=== PATIENT | female | born 1935 | race Caucasian/White ===

== ENCOUNTER 2017-11-18 17:30 | Inpatient (IN) ==
[2017-11-18] MEDS ORDERED: SODIUM CHLORIDE 0.9% 500 ML IV STA (19:19)
[2017-11-18] MEDS ORDERED: KETOROLAC 30 MG/1 ML VIAL IV STA (19:19)
[2017-11-18 20:08] LABS: Basophils % 0.1 % (0.0-0.8); Hematocrit 32.7 VOL% (35.7-47.0); Hemoglobin 10.3 GM/DL (12.0-16.0); Immature Granulocytes % 0.6 %; Immature Granulocytes Absolute 0.08 #; Lymphocytes # 4.5 10*3/uL (1.4-4.0); Lymphocytes % 32.1 % (21.3-54.2); Mean Corpuscular HGB Conc 31.5 GM/DL (32-36); Mean Corpuscular Hemoglobin 27 PG (27-34); Mean Corpuscular Volume 85.2 FL (87-102); Mean Platelet Volume 10.7 FL (9.6-12.0); Monocytes # 1.1 10*3/uL (0.11-0.8); Monocytes % 7.9 % (1.7-12.7); Neutrophils # 8.3 10*3/uL (1.4-7.4); Neutrophils % 59.3 % (38.7-73.9); Platelet Count 214 T/CUMM (130-400); Red Blood Count 3.84 MC/CUMM (3.8-5.5); Red Cell Distribution Width 15.8 % (9.3-17.3)
[2017-11-18 20:19] LABS: PT Patient Result 10.8 SECS; Partial Thromboplastin Time 27.5 SECS (0-40)
[2017-11-18 20:27] LABS: Albumin 3.4 G/DL (3.4-5.0); Bilirubin,Total 0.7 MG/DL (0.2-1.0); Calcium 8.2 MG/DL (8.5-10.1); Osmolality,Calculated 287.1 MOS/KG (273-304); Potassium 3.6 MMOL/L (3.5-5.1); Total Protein 7.5 G/DL (6.4-8.3)
[2017-11-18] MEDS ORDERED: ACETAMINOPHEN 325 MG TABLET PO PRN (21:37)
[2017-11-18] MEDS ORDERED: traZODone 50 MG TABLET PO PRN (21:37)
[2017-11-18] MEDS ORDERED: DOCUSATE SODIUM 100 MG CAPSULE PO PRN (21:37)
[2017-11-18 22:24] LABS: Apearance,Urine CLEAR (Clear); Bilirubin,Urine Negative (Negative); Blood, Urine Negative (Negative); Glucose,Urine (UA) Negative (Negative); Ketones,Urine 5 mg/dL (Negative); Mucus,Urine Occasional /LPF (Occasional); Nitrite,Urine Negative (Negative); Protein,Urine 30 MG/DL; RBC,Urine 2 /HPF (0-4); Urine Color Yellow (Yellow); Urine Urobilinogen < 2.0 EU/DL (0.2-1.0); WBC,Urine 1 /HPF (0-6)
[2017-11-18] MEDS: DEXTROSE 5% NACL 0.45% 1,000 ML IV SCH (22:58)
[2017-11-19 03:44] LABS: Basophils % 0.2 % (0.0-0.8); Eosinophils % 0.3 % (0.00-10.9); Hematocrit 27.6 VOL% (35.7-47.0); Hemoglobin 8.7 GM/DL (12.0-16.0); Immature Granulocytes % 0.4 %; Immature Granulocytes Absolute 0.05 #; Lymphocytes # 6.2 10*3/uL (1.4-4.0); Lymphocytes % 49.5 % (21.3-54.2); Mean Corpuscular HGB Conc 31.5 GM/DL (32-36); Mean Corpuscular Hemoglobin 27 PG (27-34); Mean Corpuscular Volume 85.2 FL (87-102); Mean Platelet Volume 10.9 FL (9.6-12.0); Monocytes # 0.9 10*3/uL (0.11-0.8); Monocytes % 7.3 % (1.7-12.7); Neutrophils # 5.3 10*3/uL (1.4-7.4); Neutrophils % 42.3 % (38.7-73.9); Platelet Count 189 T/CUMM (130-400); Red Blood Count 3.24 MC/CUMM (3.8-5.5); Red Cell Distribution Width 15.8 % (9.3-17.3); White Blood Count 12.6 T/CUMM (4-12)
[2017-11-19 04:16] LABS: Calcium 7.7 MG/DL (8.5-10.1); Potassium 3.1 MMOL/L (3.5-5.1)
[2017-11-19] MEDS: ENOXAPARIN 30 MG/0.3 ML SYRINGE SUBCUT SCH (08:42)
[2017-11-19] MEDS ORDERED: PANTOPRAZOLE 40 MG TABLET PO SCH (09:00)
[2017-11-19] MEDS: DEXTROSE 5% NACL 0.45% 1,000 ML IV SCH ×2 (14:51→19:54)
[2017-11-19] MEDS ORDERED: POTASSIUM CHLORIDE INJ 10 MEQ in SODIUM CHLORIDE 0.45% 1,000 ML IV SCH (15:00)
[2017-11-19] MEDS ORDERED: BUPIVACAINE SPINAL 0.75% 2 ML AMP SPINAL ONE (16:27)
[2017-11-19] MEDS ORDERED: ceFAZolin 1,000 MG VIAL ONE (17:47)
[2017-11-19] MEDS ORDERED: PROPOFOL 200 MG/20 ML VIAL IV ONE (18:30)
[2017-11-19] MEDS ORDERED: fentaNYL 100 MCG/2 ML VIAL ONE (18:30)
[2017-11-19] MEDS ORDERED: SEVOFLURANE 1 UNIT/15 MINUTE INH ONE (18:30)
[2017-11-19] MEDS ORDERED: ONDANSETRON 4 MG/2 ML VIAL ONE (18:31)
[2017-11-19] MEDS ORDERED: ePHEDrine 50 MG/ML AMP ONE (18:31)
[2017-11-19] MEDS ORDERED: ACETAMINOPHEN 325 MG TABLET PO PRN (19:17)
[2017-11-19] MEDS: ONDANSETRON 4 MG/2 ML VIAL IV PRN (21:17)
[2017-11-20 06:12] LABS: Basophils % 0.2 % (0.0-0.8); Eosinophils # 0.2 10*3/uL (0.0-0.87); Hemoglobin 8.7 GM/DL (12.0-16.0); Immature Granulocytes % 0.4 %; Immature Granulocytes Absolute 0.05 #; Lymphocytes # 5.4 10*3/uL (1.4-4.0); Lymphocytes % 44.1 % (21.3-54.2); Mean Corpuscular HGB Conc 31.1 GM/DL (32-36); Mean Corpuscular Hemoglobin 27 PG (27-34); Mean Corpuscular Volume 85.4 FL (87-102); Mean Platelet Volume 11.1 FL (9.6-12.0); Monocytes # 0.6 10*3/uL (0.11-0.8); Monocytes % 5.3 % (1.7-12.7); Neutrophils # 5.8 10*3/uL (1.4-7.4); Platelet Count 194 T/CUMM (130-400); Red Blood Count 3.28 MC/CUMM (3.8-5.5); Red Cell Distribution Width 15.6 % (9.3-17.3); White Blood Count 12.1 T/CUMM (4-12)
[2017-11-20 06:25] LABS: Calcium 7.2 MG/DL (8.5-10.1); Osmolality,Calculated 284.1 MOS/KG (273-304); Potassium 3.4 MMOL/L (3.5-5.1)
[2017-11-20] MEDS: PANTOPRAZOLE 40 MG TABLET PO SCH (08:44)
[2017-11-20] MEDS: MULTIVITAMIN (CENTRUM) TABLET PO SCH (08:44)
[2017-11-20] MEDS: ENOXAPARIN 30 MG/0.3 ML SYRINGE SUBCUT SCH (08:44)
[2017-11-20] MEDS: ONDANSETRON 4 MG/2 ML VIAL IV PRN ×2 (09:38→14:15)
[2017-11-20] MEDS: DEXTROSE 5% NACL 0.45% 1,000 ML IV SCH (12:33)
[2017-11-20] MEDS ORDERED: PROCHLORPERAZINE 5 MG TABLET PO PRN (14:44)
[2017-11-20] MEDS: BACITRACIN OINT 0.9 GM PACK TOP SCH (14:45)
[2017-11-20] MEDS ORDERED: POTASSIUM CHLORIDE 20 MEQ PACK PO ONE (17:17)
[2017-11-20] MEDS ORDERED: PROCHLORPERAZINE 10 MG TABLET PO PRN (17:30)
[2017-11-21] MEDS: DEXTROSE 5% NACL 0.45% 1,000 ML IV SCH ×2 (04:55→21:41)
[2017-11-21 06:19] LABS: Basophils % 0.2 % (0.0-0.8); Eosinophils # 0.3 10*3/uL (0.0-0.87); Eosinophils % 2.7 % (0.00-10.9); Hematocrit 29.1 VOL% (35.7-47.0); Hemoglobin 9.3 GM/DL (12.0-16.0); Immature Granulocytes % 0.4 %; Immature Granulocytes Absolute 0.04 #; Lymphocytes # 4.2 10*3/uL (1.4-4.0); Lymphocytes % 39.8 % (21.3-54.2); Mean Corpuscular Hemoglobin 27 PG (27-34); Mean Corpuscular Volume 85.3 FL (87-102); Mean Platelet Volume 11.2 FL (9.6-12.0); Monocytes # 0.8 10*3/uL (0.11-0.8); Monocytes % 7.4 % (1.7-12.7); Neutrophils # 5.3 10*3/uL (1.4-7.4); Neutrophils % 49.5 % (38.7-73.9); Platelet Count 223 T/CUMM (130-400); Red Blood Count 3.41 MC/CUMM (3.8-5.5); Red Cell Distribution Width 15.5 % (9.3-17.3); White Blood Count 10.6 T/CUMM (4-12)
[2017-11-21 06:21] LABS: Basophils % 0.2 % (0.0-0.8); Eosinophils # 0.4 10*3/uL (0.0-0.87); Eosinophils % 3.3 % (0.00-10.9); Hematocrit 30.3 VOL% (35.7-47.0); Hemoglobin 9.3 GM/DL (12.0-16.0); Immature Granulocytes % 0.7 %; Immature Granulocytes Absolute 0.07 #; Lymphocytes # 4.3 10*3/uL (1.4-4.0); Mean Corpuscular HGB Conc 30.7 GM/DL (32-36); Mean Corpuscular Hemoglobin 26 PG (27-34); Mean Corpuscular Volume 85.6 FL (87-102); Monocytes # 0.8 10*3/uL (0.11-0.8); Monocytes % 7.5 % (1.7-12.7); Neutrophils # 5.2 10*3/uL (1.4-7.4); Neutrophils % 48.3 % (38.7-73.9); Platelet Count 230 T/CUMM (130-400); Red Blood Count 3.54 MC/CUMM (3.8-5.5); Red Cell Distribution Width 15.3 % (9.3-17.3); White Blood Count 10.7 T/CUMM (4-12)
[2017-11-21 06:48] LABS: Calcium 7.8 MG/DL (8.5-10.1); Osmolality,Calculated 279.3 MOS/KG (273-304); Potassium 3.7 MMOL/L (3.5-5.1)
[2017-11-21 06:53] LABS: % Iron Saturation 9.3 % (18-50); Ferritin 57.7 ng/ml (8-252)
[2017-11-21 06:57] LABS: Folate 10.6 NG/ML (5.4-24.0); Vitamin B12 569 PG/ML (211-911)
[2017-11-21 07:30] LABS: Sedimentation Rate-Westergren 59 MM/HR (0-30)
[2017-11-21] MEDS: PANTOPRAZOLE 40 MG TABLET PO SCH (09:57)
[2017-11-21] MEDS: MULTIVITAMIN (CENTRUM) TABLET PO SCH (09:57)
[2017-11-21] MEDS: ENOXAPARIN 30 MG/0.3 ML SYRINGE SUBCUT SCH (10:00)
[2017-11-21] MEDS: BACITRACIN OINT 0.9 GM PACK TOP SCH (10:06)
[2017-11-21] MEDS: ONDANSETRON 4 MG/2 ML VIAL IV PRN (11:09)
[2017-11-22 05:56] LABS: Basophils % 0.4 % (0.0-0.8); Eosinophils # 0.5 10*3/uL (0.0-0.87); Eosinophils % 4.6 % (0.00-10.9); Hematocrit 27.3 VOL% (35.7-47.0); Hemoglobin 8.7 GM/DL (12.0-16.0); Immature Granulocytes % 0.4 %; Immature Granulocytes Absolute 0.05 #; Lymphocytes # 4.6 10*3/uL (1.4-4.0); Lymphocytes % 40.4 % (21.3-54.2); Mean Corpuscular HGB Conc 31.9 GM/DL (32-36); Mean Corpuscular Hemoglobin 27 PG (27-34); Mean Corpuscular Volume 84.8 FL (87-102); Mean Platelet Volume 10.4 FL (9.6-12.0); Monocytes # 1.3 10*3/uL (0.11-0.8); Monocytes % 11.1 % (1.7-12.7); Neutrophils # 4.9 10*3/uL (1.4-7.4); Neutrophils % 43.1 % (38.7-73.9); Platelet Count 239 T/CUMM (130-400); Red Blood Count 3.22 MC/CUMM (3.8-5.5); Red Cell Distribution Width 15.5 % (9.3-17.3); White Blood Count 11.3 T/CUMM (4-12)
[2017-11-22 06:34] LABS: Calcium 7.7 MG/DL (8.5-10.1); Osmolality,Calculated 281.1 MOS/KG (273-304); Potassium 3.7 MMOL/L (3.5-5.1)
[2017-11-22 09:22] LABS: Hemoglobin A1 (Alkaline) 97.9 % (96.5-98.5); Hemoglobin A2 (Alkaline) 2.1 % (1.5-3.5)
[2017-11-22] MEDS: ONDANSETRON 4 MG/2 ML VIAL IV PRN ×2 (09:56→17:47)
[2017-11-22] MEDS: DOCUSATE SODIUM 100 MG CAPSULE PO PRN (10:00)
[2017-11-22] MEDS: PANTOPRAZOLE 40 MG TABLET PO SCH (10:02)
[2017-11-22] MEDS: MULTIVITAMIN (CENTRUM) TABLET PO SCH (10:02)
[2017-11-22] MEDS: ENOXAPARIN 30 MG/0.3 ML SYRINGE SUBCUT SCH (10:03)
[2017-11-22] MEDS: BACITRACIN OINT 0.9 GM PACK TOP SCH (10:05)
[2017-11-22] MEDS: ALBUTEROL/IPRATROPIUM 3 ML NEB RESP TX SCH ×2 (13:55→19:06)
[2017-11-22] MEDS: DEXTROSE 5% NACL 0.45% 1,000 ML IV SCH (17:43)
[2017-11-23] MEDS: ALBUTEROL/IPRATROPIUM 3 ML NEB RESP TX SCH ×4 (00:20→19:52)
[2017-11-23 06:03] LABS: Basophils % 0.4 % (0.0-0.8); Eosinophils # 0.5 10*3/uL (0.0-0.87); Eosinophils % 4.4 % (0.00-10.9); Hematocrit 27.8 VOL% (35.7-47.0); Hemoglobin 8.8 GM/DL (12.0-16.0); Immature Granulocytes % 0.5 %; Immature Granulocytes Absolute 0.06 #; Lymphocytes # 5.1 10*3/uL (1.4-4.0); Lymphocytes % 45.5 % (21.3-54.2); Mean Corpuscular HGB Conc 31.7 GM/DL (32-36); Mean Corpuscular Hemoglobin 27 PG (27-34); Mean Corpuscular Volume 84.5 FL (87-102); Mean Platelet Volume 10.4 FL (9.6-12.0); Neutrophils # 4.5 10*3/uL (1.4-7.4); Neutrophils % 40.2 % (38.7-73.9); Platelet Count 263 T/CUMM (130-400); Red Blood Count 3.29 MC/CUMM (3.8-5.5); Red Cell Distribution Width 15.6 % (9.3-17.3); White Blood Count 11.2 T/CUMM (4-12)
[2017-11-23 07:07] LABS: Calcium 7.8 MG/DL (8.5-10.1); Potassium 3.7 MMOL/L (3.5-5.1)
[2017-11-23] MEDS: DEXTROSE 5% NACL 0.45% 1,000 ML IV SCH ×3 (07:24→18:58)
[2017-11-23] MEDS: MULTIVITAMIN (CENTRUM) TABLET PO SCH (09:25)
[2017-11-23] MEDS: BACITRACIN OINT 0.9 GM PACK TOP SCH (09:25)
[2017-11-23] MEDS: ENOXAPARIN 30 MG/0.3 ML SYRINGE SUBCUT SCH (09:25)
[2017-11-23] MEDS: PANTOPRAZOLE 40 MG TABLET PO SCH (09:25)
[2017-11-23] MEDS: ONDANSETRON 4 MG/2 ML VIAL IV PRN (10:40)
[2017-11-23] MEDS ORDERED: SODIUM PHOSPHATE ENEMA 133 ML BOTTLE RECTAL ONE (10:43)
[2017-11-24] MEDS: DEXTROSE 5% NACL 0.45% 1,000 ML IV SCH ×2 (00:50→16:58)
[2017-11-24] MEDS: ALBUTEROL/IPRATROPIUM 3 ML NEB RESP TX SCH ×4 (01:50→19:34)
[2017-11-24] MEDS: PANTOPRAZOLE 40 MG TABLET PO SCH (09:46)
[2017-11-24] MEDS: ENOXAPARIN 30 MG/0.3 ML SYRINGE SUBCUT SCH (09:46)
[2017-11-24] MEDS: MULTIVITAMIN (CENTRUM) TABLET PO SCH (09:46)
[2017-11-24] MEDS: BACITRACIN OINT 0.9 GM PACK TOP SCH (09:46)
[2017-11-24] MEDS: diphenhydrAMINE CAP 25 MG CAPSULE PO PRN (16:58)
[2017-11-25] MEDS: ALBUTEROL/IPRATROPIUM 3 ML NEB RESP TX SCH ×4 (00:51→19:03)
[2017-11-25] MEDS: diphenhydrAMINE CAP 25 MG CAPSULE PO PRN ×3 (01:10→20:50)
[2017-11-25] MEDS: ENOXAPARIN 30 MG/0.3 ML SYRINGE SUBCUT SCH (09:39)
[2017-11-25] MEDS: PANTOPRAZOLE 40 MG TABLET PO SCH (09:40)
[2017-11-25] MEDS: MULTIVITAMIN (CENTRUM) TABLET PO SCH (09:40)
[2017-11-25] MEDS: DEXTROSE 5% NACL 0.45% 1,000 ML IV SCH (12:44)
[2017-11-25] MEDS: BACITRACIN OINT 0.9 GM PACK TOP SCH (15:07)
[2017-11-25] MEDS: HYDROCORTISONE 1% CREAM 28 GM TUBE TOP SCH ×2 (15:08→20:50)
[2017-11-25] MEDS: DOCUSATE SODIUM 100 MG CAPSULE PO PRN (18:44)
[2017-11-26] MEDS: ALBUTEROL/IPRATROPIUM 3 ML NEB RESP TX SCH ×2 (00:19→07:18)
[2017-11-26] MEDS: DEXTROSE 5% NACL 0.45% 1,000 ML IV SCH (01:53)
[2017-11-26 08:17] VITALS: BP 120/63
[2017-11-26] MEDS: PANTOPRAZOLE 40 MG TABLET PO SCH (08:42)
[2017-11-26] MEDS: MULTIVITAMIN (CENTRUM) TABLET PO SCH (08:42)
[2017-11-26] MEDS: BACITRACIN OINT 0.9 GM PACK TOP SCH (08:42)
[2017-11-26] MEDS: DOCUSATE SODIUM 100 MG CAPSULE PO PRN (08:42)
[2017-11-26] MEDS: HYDROCORTISONE 1% CREAM 28 GM TUBE TOP SCH (08:42)
[2017-11-26] MEDS: ENOXAPARIN 30 MG/0.3 ML SYRINGE SUBCUT SCH (08:42)
== END 2017-11-26 11:00 | DRG 482 ==
LOC: EDUNIT# 17:30 → N.ED 17:30 → EDBD 17:30 → N.EDINP 21:37 → SUATTDRO 21:37 → N.EDINP 22:15 → N.3E 22:35
PROVIDERS: ADMIT Hospitalist

== ENCOUNTER 2017-11-28 05:46 | Inpatient (IN) ==
[2017-11-28 06:49] LABS: Apearance,Urine CLOUDY (Clear); Bilirubin,Urine Negative (Negative); Blood, Urine Small mg/dL (Negative); Glucose,Urine (UA) Negative (Negative); Ketones,Urine Negative (Negative); Mucus,Urine Occasional /LPF (Occasional); Nitrite,Urine Positive (Negative); Protein,Urine 30 MG/DL; RBC,Urine 19 /HPF (0-4); Squamous Epithelial Cell,Urine Occasional /HPF (0-10); Urine Color Yellow (Yellow); Urine Urobilinogen < 2.0 EU/DL (0.2-1.0); WBC,Urine 1026 /HPF (0-6)
[2017-11-28 06:49] LABS: Basophils # 0.1 10*3/uL (0.0-0.2); Basophils % 0.8 % (0.0-0.8); Eosinophils # 0.8 10*3/uL (0.0-0.87); Eosinophils % 4.5 % (0.00-10.9); Hematocrit 31.1 VOL% (35.7-47.0); Hemoglobin 9.7 GM/DL (12.0-16.0); Immature Granulocytes % 0.9 %; Immature Granulocytes Absolute 0.15 #; Lymphocytes # 7.9 10*3/uL (1.4-4.0); Lymphocytes % 46.6 % (21.3-54.2); Mean Corpuscular HGB Conc 31.2 GM/DL (32-36); Mean Corpuscular Hemoglobin 27 PG (27-34); Mean Corpuscular Volume 86.1 FL (87-102); Mean Platelet Volume 10.6 FL (9.6-12.0); Monocytes # 1.8 10*3/uL (0.11-0.8); Monocytes % 10.7 % (1.7-12.7); Neutrophils # 6.2 10*3/uL (1.4-7.4); Neutrophils % 36.5 % (38.7-73.9); Platelet Count 373 T/CUMM (130-400); Red Blood Count 3.61 MC/CUMM (3.8-5.5)
[2017-11-28 06:54] LABS: Partial Thromboplastin Time 27.2 SECS (0-40)
[2017-11-28 07:02] LABS: Albumin 2.4 G/DL (3.4-5.0); Bilirubin,Total 0.4 MG/DL (0.2-1.0); Calcium 8.5 MG/DL (8.5-10.1); Osmolality,Calculated 292.4 MOS/KG (273-304); Potassium 3.9 MMOL/L (3.5-5.1); Total Protein 6.3 G/DL (6.4-8.3)
[2017-11-28 07:08] LABS: Eosinophils 7 % (0-10); Hypochromasia 1+; Lymphocytes 30 % (20-55); Macrocytosis Slight; Platelet Estimate Adequate; Polychromasia Slight; Segmented Neutrophils 58 % (50-85); Total Cells Counted 100
[2017-11-28] MEDS ORDERED: MORPHINE 10 MG/1 ML VIAL ONE (07:31)
[2017-11-28] MEDS ORDERED: MORPHINE 4 MG/1 ML VIAL IV STA ×2 (07:47→08:39)
[2017-11-28] MEDS ORDERED: cefTRIAXone 1,000 MG in SYRINGE 1 EACH IV STA (08:29)
[2017-11-28] MEDS ORDERED: cefTRIAXone 1,000 MG in SYRINGE 1 EACH IV SCH (08:30)
[2017-11-28] MEDS ORDERED: SODIUM CHLORIDE 0.9% 100 ML IV ONE (08:44)
[2017-11-28] MEDS ORDERED: cefTRIAXone 1,000 MG VIAL ONE (08:44)
[2017-11-28] MEDS ORDERED: DOCUSATE SODIUM 100 MG CAPSULE PO PRN (13:51)
[2017-11-28] MEDS: MEPERIDINE 25 MG/1 ML VIAL IV PRN ×2 (14:37→20:10)
[2017-11-28] MEDS: ONDANSETRON 4 MG/2 ML VIAL IV PRN (14:38)
[2017-11-28] MEDS: HYDROCORTISONE 1% CREAM 28 GM TUBE TOP SCH (20:10)
[2017-11-29 05:38] LABS: Basophils # 0.1 10*3/uL (0.0-0.2); Basophils % 0.4 % (0.0-0.8); Eosinophils # 0.3 10*3/uL (0.0-0.87); Eosinophils % 2.1 % (0.00-10.9); Hematocrit 27.4 VOL% (35.7-47.0); Hemoglobin 8.7 GM/DL (12.0-16.0); Immature Granulocytes % 1.5 %; Immature Granulocytes Absolute 0.24 #; Lymphocytes # 6.5 10*3/uL (1.4-4.0); Lymphocytes % 41.1 % (21.3-54.2); Mean Corpuscular HGB Conc 31.8 GM/DL (32-36); Mean Corpuscular Hemoglobin 27 PG (27-34); Mean Platelet Volume 10.5 FL (9.6-12.0); Monocytes # 1.3 10*3/uL (0.11-0.8); Monocytes % 8.5 % (1.7-12.7); NRBC # 0.03 10*3/uL; Neutrophils # 7.3 10*3/uL (1.4-7.4); Neutrophils % 46.4 % (38.7-73.9); Platelet Count 308 T/CUMM (130-400); Red Blood Count 3.26 MC/CUMM (3.8-5.5); Red Cell Distribution Width 16.9 % (9.3-17.3); White Blood Count 15.7 T/CUMM (4-12)
[2017-11-29 06:03] LABS: Osmolality,Calculated 284.1 MOS/KG (273-304); Potassium 3.8 MMOL/L (3.5-5.1)
[2017-11-29] MEDS: MEPERIDINE 25 MG/1 ML VIAL IV PRN ×2 (07:45→19:40)
[2017-11-29] MEDS: cefTRIAXone 1,000 MG in SYRINGE 1 EACH IV SCH (07:53)
[2017-11-29] MEDS: HYDROCORTISONE 1% CREAM 28 GM TUBE TOP SCH ×2 (09:42→20:11)
[2017-11-29] MEDS: MULTIVITAMIN (CENTRUM) TABLET PO SCH (09:42)
[2017-11-29] MEDS ORDERED: ceFAZolin 1,000 MG in SYRINGE 1 EACH IV ONE (10:00)
[2017-11-29] MEDS ORDERED: BUPIVACAINE SPINAL 0.75% 2 ML AMP SPINAL ONE (10:14)
[2017-11-29] MEDS ORDERED: PROMETHAZINE 25 MG/1 ML VIAL IM PRN (11:54)
[2017-11-29] MEDS ORDERED: TEMAZEPAM 7.5 MG CAPSULE PO PRN (11:54)
[2017-11-29] MEDS ORDERED: LACTULOSE 20 GM/30 ML UDCUP PO PRN (11:54)
[2017-11-29] MEDS ORDERED: BISACODYL 10 MG SUPP RECTAL PRN (11:54)
[2017-11-29] MEDS ORDERED: PHENYLEPHRINE 10 MG/1 ML VIAL IV ONE (12:17)
[2017-11-29] MEDS ORDERED: fentaNYL 100 MCG/2 ML VIAL ONE (12:17)
[2017-11-29] MEDS ORDERED: PROPOFOL 200 MG/20 ML VIAL IV ONE (12:17)
[2017-11-29] MEDS ORDERED: SODIUM CHLORIDE 0.9% 100 ML IV ONE (12:18)
[2017-11-29] MEDS ORDERED: PHENYLEPHRINE 1 MG/10 ML SYRINGE IV ONE (12:18)
[2017-11-29] MEDS ORDERED: SODIUM CHLORIDE 0.9% 250 ML IV ONE (12:18)
[2017-11-29] MEDS: ChlordiazePOXIDE/CLIDINIUM 5-2.5 MG CAPSULE PO SCH ×2 (13:26→18:17)
[2017-11-29] MEDS: LACTATED RINGERS 1,000 ML IV SCH (13:27)
[2017-11-29] MEDS: CALCIUM CARBONATE CHEW 500 MG TABLET PO SCH (13:27)
[2017-11-29] MEDS ORDERED: SKIN HEALING OINT (AQUAPHOR) 50 GM TUBE TOP PRN (14:26)
[2017-11-29] MEDS: SKIN HEALING OINT (AQUAPHOR) 50 GM TUBE TOP SCH (15:33)
[2017-11-29] MEDS: ceFAZolin 1,000 MG in SYRINGE 1 EACH IV SCH (18:15)
[2017-11-29] MEDS: ONDANSETRON 4 MG/2 ML VIAL IV PRN (19:43)
[2017-11-29] MEDS: DOCUSATE SODIUM 100 MG CAPSULE PO SCH (20:11)
[2017-11-30] MEDS: ceFAZolin 1,000 MG in SYRINGE 1 EACH IV SCH (01:22)
[2017-11-30] MEDS: FONDAPARINUX 2.5 MG/0.5 ML SYRINGE SUBCUT SCH (05:58)
[2017-11-30 06:37] LABS: Basophils # 0.1 10*3/uL (0.0-0.2); Basophils % 0.4 % (0.0-0.8); Eosinophils # 0.3 10*3/uL (0.0-0.87); Eosinophils % 1.7 % (0.00-10.9); Hematocrit 27.7 VOL% (35.7-47.0); Hemoglobin 8.5 GM/DL (12.0-16.0); Immature Granulocytes % 1.1 %; Immature Granulocytes Absolute 0.21 #; Lymphocytes # 6.6 10*3/uL (1.4-4.0); Lymphocytes % 35.1 % (21.3-54.2); Mean Corpuscular HGB Conc 30.7 GM/DL (32-36); Mean Corpuscular Hemoglobin 26 PG (27-34); Mean Corpuscular Volume 85.8 FL (87-102); Mean Platelet Volume 10.5 FL (9.6-12.0); Monocytes # 1.5 10*3/uL (0.11-0.8); Monocytes % 7.7 % (1.7-12.7); NRBC # 0.02 10*3/uL; Neutrophils # 10.2 10*3/uL (1.4-7.4); Platelet Count 294 T/CUMM (130-400); Red Blood Count 3.23 MC/CUMM (3.8-5.5); Red Cell Distribution Width 17.1 % (9.3-17.3); White Blood Count 18.8 T/CUMM (4-12)
[2017-11-30 07:05] LABS: Calcium 7.9 MG/DL (8.5-10.1); Osmolality,Calculated 278.4 MOS/KG (273-304); Potassium 3.7 MMOL/L (3.5-5.1)
[2017-11-30] MEDS: cefTRIAXone 1,000 MG in SYRINGE 1 EACH IV SCH (10:07)
[2017-11-30] MEDS: MEPERIDINE 25 MG/1 ML VIAL IV PRN (10:10)
[2017-11-30] MEDS: MULTIVITAMIN (CENTRUM) TABLET PO SCH (10:15)
[2017-11-30] MEDS: ONDANSETRON 4 MG/2 ML VIAL IV PRN (10:15)
[2017-11-30] MEDS: ChlordiazePOXIDE/CLIDINIUM 5-2.5 MG CAPSULE PO SCH (10:15)
[2017-11-30] MEDS: DOCUSATE SODIUM 100 MG CAPSULE PO SCH ×2 (10:16→21:46)
[2017-11-30] MEDS: CALCIUM CARBONATE CHEW 500 MG TABLET PO SCH (10:16)
[2017-11-30] MEDS: MAGNESIUM HYDROXIDE SUSP 30 ML UDCUP PO PRN (10:18)
[2017-11-30] MEDS: HYDROCORTISONE 1% CREAM 28 GM TUBE TOP SCH ×2 (10:20→21:48)
[2017-11-30] MEDS: SKIN HEALING OINT (AQUAPHOR) 50 GM TUBE TOP SCH ×2 (10:21→13:46)
[2017-11-30] MEDS: diphenhydrAMINE CAP 25 MG CAPSULE PO PRN (13:33)
[2017-11-30] MEDS: LACTATED RINGERS 1,000 ML IV SCH (20:37)
[2017-11-30] MEDS: ZINC OXIDE PASTE 113 GM TUBE TOP SCH ×2 (20:37→21:48)
[2017-12-01] MEDS: FONDAPARINUX 2.5 MG/0.5 ML SYRINGE SUBCUT SCH (05:55)
[2017-12-01 07:17] LABS: Basophils # 0.1 10*3/uL (0.0-0.2); Basophils % 0.3 % (0.0-0.8); Eosinophils # 0.5 10*3/uL (0.0-0.87); Eosinophils % 2.5 % (0.00-10.9); Hematocrit 28.7 VOL% (35.7-47.0); Immature Granulocytes Absolute 0.18 #; Lymphocytes # 5.7 10*3/uL (1.4-4.0); Lymphocytes % 32.1 % (21.3-54.2); Mean Corpuscular HGB Conc 31.4 GM/DL (32-36); Mean Corpuscular Hemoglobin 27 PG (27-34); Mean Corpuscular Volume 87.2 FL (87-102); Mean Platelet Volume 11.1 FL (9.6-12.0); Monocytes # 1.4 10*3/uL (0.11-0.8); Monocytes % 7.7 % (1.7-12.7); NRBC # 0.02 10*3/uL; Neutrophils # 10.1 10*3/uL (1.4-7.4); Neutrophils % 56.4 % (38.7-73.9); Platelet Count 259 T/CUMM (130-400); Red Blood Count 3.29 MC/CUMM (3.8-5.5); Red Cell Distribution Width 17.1 % (9.3-17.3); White Blood Count 17.9 T/CUMM (4-12)
[2017-12-01 07:52] LABS: Hypochromasia 1+; Platelet Estimate Adequate
[2017-12-01] MEDS: DOCUSATE SODIUM 100 MG CAPSULE PO SCH ×2 (09:11→21:10)
[2017-12-01] MEDS: MULTIVITAMIN (CENTRUM) TABLET PO SCH (09:12)
[2017-12-01] MEDS: CALCIUM CARBONATE CHEW 500 MG TABLET PO SCH (09:12)
[2017-12-01] MEDS: ChlordiazePOXIDE/CLIDINIUM 5-2.5 MG CAPSULE PO SCH (09:12)
[2017-12-01] MEDS: MAGNESIUM HYDROXIDE SUSP 30 ML UDCUP PO PRN (09:14)
[2017-12-01] MEDS: cefTRIAXone 1,000 MG in SYRINGE 1 EACH IV SCH (09:16)
[2017-12-01] MEDS: SKIN HEALING OINT (AQUAPHOR) 50 GM TUBE TOP SCH (09:24)
[2017-12-01] MEDS: HYDROCORTISONE 1% CREAM 28 GM TUBE TOP SCH ×2 (09:24→21:14)
[2017-12-01] MEDS: diphenhydrAMINE CAP 25 MG CAPSULE PO PRN (17:05)
[2017-12-01] MEDS: ZINC OXIDE PASTE 113 GM TUBE TOP SCH ×2 (19:41→21:14)
[2017-12-02 05:12] LABS: Basophils # 0.1 10*3/uL (0.0-0.2); Basophils % 0.4 % (0.0-0.8); Eosinophils # 0.5 10*3/uL (0.0-0.87); Eosinophils % 2.9 % (0.00-10.9); Hematocrit 26.9 VOL% (35.7-47.0); Hemoglobin 8.6 GM/DL (12.0-16.0); Immature Granulocytes % 1.3 %; Immature Granulocytes Absolute 0.22 #; Lymphocytes # 6.4 10*3/uL (1.4-4.0); Lymphocytes % 37.6 % (21.3-54.2); Mean Corpuscular Hemoglobin 27 PG (27-34); Mean Corpuscular Volume 85.1 FL (87-102); Mean Platelet Volume 10.8 FL (9.6-12.0); Monocytes # 1.1 10*3/uL (0.11-0.8); Monocytes % 6.7 % (1.7-12.7); Neutrophils # 8.7 10*3/uL (1.4-7.4); Neutrophils % 51.1 % (38.7-73.9); Platelet Count 336 T/CUMM (130-400); Red Blood Count 3.16 MC/CUMM (3.8-5.5); Red Cell Distribution Width 17.2 % (9.3-17.3)
[2017-12-02] MEDS: FONDAPARINUX 2.5 MG/0.5 ML SYRINGE SUBCUT SCH (06:06)
[2017-12-02] MEDS: cefTRIAXone 1,000 MG in SYRINGE 1 EACH IV SCH (10:16)
[2017-12-02] MEDS: HYDROCORTISONE 1% CREAM 28 GM TUBE TOP SCH ×2 (10:17→21:39)
[2017-12-02] MEDS: MULTIVITAMIN (CENTRUM) TABLET PO SCH (10:20)
[2017-12-02] MEDS: ChlordiazePOXIDE/CLIDINIUM 5-2.5 MG CAPSULE PO SCH (10:20)
[2017-12-02] MEDS: CALCIUM CARBONATE CHEW 500 MG TABLET PO SCH (10:21)
[2017-12-02] MEDS: DOCUSATE SODIUM 100 MG CAPSULE PO SCH ×2 (10:27→21:38)
[2017-12-02] MEDS: ZINC OXIDE PASTE 113 GM TUBE TOP SCH ×2 (21:38→22:01)
[2017-12-02] MEDS: SKIN HEALING OINT (AQUAPHOR) 50 GM TUBE TOP SCH (22:01)
[2017-12-03] MEDS: FONDAPARINUX 2.5 MG/0.5 ML SYRINGE SUBCUT SCH (05:40)
[2017-12-03] MEDS: cefTRIAXone 1,000 MG in SYRINGE 1 EACH IV SCH (10:25)
[2017-12-03] MEDS: ChlordiazePOXIDE/CLIDINIUM 5-2.5 MG CAPSULE PO SCH (10:34)
[2017-12-03] MEDS: MULTIVITAMIN (CENTRUM) TABLET PO SCH (10:34)
[2017-12-03] MEDS: CALCIUM CARBONATE CHEW 500 MG TABLET PO SCH (10:34)
[2017-12-03] MEDS: DOCUSATE SODIUM 100 MG CAPSULE PO SCH ×2 (10:35→20:48)
[2017-12-03] MEDS: SKIN HEALING OINT (AQUAPHOR) 50 GM TUBE TOP SCH (10:57)
[2017-12-03] MEDS: diphenhydrAMINE CAP 25 MG CAPSULE PO PRN (12:41)
[2017-12-03] MEDS: HYDROCORTISONE 1% CREAM 28 GM TUBE TOP SCH ×2 (12:42→20:51)
[2017-12-03] MEDS ORDERED: TUBERCULIN SKIN TEST 0.1 ML SYRINGE INTRADERM ONE (15:55)
[2017-12-03] MEDS: ZINC OXIDE PASTE 113 GM TUBE TOP SCH ×2 (19:56→20:50)
[2017-12-03] MEDS: PANTOPRAZOLE 40 MG TABLET PO SCH (20:48)
[2017-12-04] MEDS: FONDAPARINUX 2.5 MG/0.5 ML SYRINGE SUBCUT SCH (06:05)
[2017-12-04 06:33] LABS: Basophils # 0.1 10*3/uL (0.0-0.2); Basophils % 0.4 % (0.0-0.8); Eosinophils # 0.6 10*3/uL (0.0-0.87); Eosinophils % 4.3 % (0.00-10.9); Hematocrit 26.1 VOL% (35.7-47.0); Hemoglobin 8.3 GM/DL (12.0-16.0); Immature Granulocytes % 0.7 %; Lymphocytes # 6.8 10*3/uL (1.4-4.0); Mean Corpuscular HGB Conc 31.8 GM/DL (32-36); Mean Corpuscular Hemoglobin 27 PG (27-34); Mean Corpuscular Volume 84.7 FL (87-102); Monocytes # 0.8 10*3/uL (0.11-0.8); Monocytes % 5.7 % (1.7-12.7); NRBC # 0.02 10*3/uL; Neutrophils # 5.8 10*3/uL (1.4-7.4); Neutrophils % 40.9 % (38.7-73.9); Platelet Count 340 T/CUMM (130-400); Red Blood Count 3.08 MC/CUMM (3.8-5.5); Red Cell Distribution Width 17.2 % (9.3-17.3); White Blood Count 14.1 T/CUMM (4-12)
[2017-12-04 06:57] LABS: Osmolality,Calculated 287.8 MOS/KG (273-304); Potassium 4.2 MMOL/L (3.5-5.1)
[2017-12-04 08:04] VITALS: BP 111/56
[2017-12-04] MEDS: cefTRIAXone 1,000 MG in SYRINGE 1 EACH IV SCH (09:38)
[2017-12-04] MEDS: MULTIVITAMIN (CENTRUM) TABLET PO SCH (09:39)
[2017-12-04] MEDS: DOCUSATE SODIUM 100 MG CAPSULE PO SCH (09:39)
[2017-12-04] MEDS: CALCIUM CARBONATE CHEW 500 MG TABLET PO SCH (09:39)
[2017-12-04] MEDS: PANTOPRAZOLE 40 MG TABLET PO SCH (09:39)
[2017-12-04] MEDS: ChlordiazePOXIDE/CLIDINIUM 5-2.5 MG CAPSULE PO SCH (09:42)
[2017-12-04] MEDS: HYDROCORTISONE 1% CREAM 28 GM TUBE TOP SCH (09:44)
[2017-12-04] MEDS: SKIN HEALING OINT (AQUAPHOR) 50 GM TUBE TOP SCH (09:44)
[2017-12-04] MEDS: ZINC OXIDE PASTE 113 GM TUBE TOP SCH (13:10)
== END 2017-12-04 11:10 | disposition swing bed (61) | DRG 470 ==
LOC: N.ED 05:46 → SUATTDRO 08:29 → N.EDINP 08:29 → N.3E 12:27
PROVIDERS: ADMIT Internal Medicine; ATTEND Internal Medicine

== ENCOUNTER 2017-12-27 13:03 | Inpatient (IN) ==
[2017-12-27] MEDS ORDERED: SODIUM CHLORIDE 0.9% 500 ML IV STA (13:37)
[2017-12-27] MEDS ORDERED: CLINDAMYCIN INJ 600 MG in PREMIX 1 EACH IV STA (13:37)
[2017-12-27 13:58] LABS: Basophils # 0.1 10*3/uL (0.0-0.2); Basophils % 0.3 % (0.0-0.8); Hematocrit 32.5 VOL% (35.7-47.0); Hemoglobin 10.2 GM/DL (12.0-16.0); Immature Granulocytes % 0.8 %; Immature Granulocytes Absolute 0.21 #; Lymphocytes # 6.6 10*3/uL (1.4-4.0); Lymphocytes % 23.7 % (21.3-54.2); Mean Corpuscular HGB Conc 31.4 GM/DL (32-36); Mean Corpuscular Hemoglobin 26 PG (27-34); Mean Corpuscular Volume 83.5 FL (87-102); Mean Platelet Volume 10.4 FL (9.6-12.0); Monocytes # 1.9 10*3/uL (0.11-0.8); Neutrophils # 18.8 10*3/uL (1.4-7.4); Neutrophils % 68.2 % (38.7-73.9); Platelet Count 595 T/CUMM (130-400); Red Blood Count 3.89 MC/CUMM (3.8-5.5); Red Cell Distribution Width 18.8 % (9.3-17.3); White Blood Count 27.6 T/CUMM (4-12)
[2017-12-27 14:13] LABS: Calcium 8.5 MG/DL (8.5-10.1); Osmolality,Calculated 288.8 MOS/KG (273-304)
[2017-12-27 14:59] LABS: Band Neutrophils 16 % (0-10); Lymphocytes 17 % (20-55); Platelet Estimate Increased; Segmented Neutrophils 64 % (50-85); Total Cells Counted 100
[2017-12-27 15:00] LABS: Anisocytosis 2+
[2017-12-27 15:01] LABS: Burr Cells Few; Hypochromasia 1+
[2017-12-27 15:02] LABS: Ovalocytes Slight; Polychromasia Slight
[2017-12-27] MEDS ORDERED: KETOROLAC 30 MG/1 ML VIAL IV STA (15:49)
[2017-12-27] MEDS ORDERED: GLUCAGON 1 MG VIAL IM PRN (16:00)
[2017-12-27] MEDS ORDERED: ONDANSETRON 4 MG/2 ML VIAL IV PRN (16:00)
[2017-12-27] MEDS ORDERED: ACETAMINOPHEN 325 MG TABLET PO PRN (16:00)
[2017-12-27] MEDS ORDERED: SODIUM CHLORIDE 0.9% 1,000 ML IV SCH (16:00)
[2017-12-27] MEDS ORDERED: LACTULOSE 20 GM/30 ML UDCUP PO PRN (16:00)
[2017-12-27] MEDS ORDERED: SODIUM CHLORIDE 0.9% 1,400 ML IV ONE (16:00)
[2017-12-27] MEDS ORDERED: DEXTROSE 50% 25 GM/50 ML VIAL IV PRN (16:00)
[2017-12-27 16:56] LABS: Thyroid Stimulating Hormone 0.713 uIU/ml (0.358-3.74)
[2017-12-27] MEDS: ENOXAPARIN 40 MG/0.4 ML SYRINGE SUBCUT SCH (17:06)
[2017-12-27] MEDS: INSULIN LISPRO 100 UNIT/ML SUBCUT SCH ×2 (18:36→20:56)
[2017-12-27] MEDS: SODIUM CHLORIDE 0.9% 1,000 ML IV SCH (18:46)
[2017-12-27] MEDS: VANCOMYCIN INJ 750 MG in SODIUM CHLORIDE 0.9% 250 ML IV SCH (18:46)
[2017-12-27] MEDS: CLINDAMYCIN INJ 600 MG in PREMIX 1 EACH IV SCH (20:56)
[2017-12-27] MEDS: CHLORHEXIDINE 0.12% ORAL RINSE 60 ML BOTTLE SWISH/SPIT SCH (20:57)
[2017-12-28] MEDS: CLINDAMYCIN INJ 600 MG in PREMIX 1 EACH IV SCH ×4 (03:01→20:59)
[2017-12-28 06:34] LABS: Basophils # 0.1 10*3/uL (0.0-0.2); Basophils % 0.4 % (0.0-0.8); Eosinophils # 0.4 10*3/uL (0.0-0.87); Eosinophils % 1.3 % (0.00-10.9); Hematocrit 27.6 VOL% (35.7-47.0); Hemoglobin 8.4 GM/DL (12.0-16.0); Immature Granulocytes % 0.9 %; Immature Granulocytes Absolute 0.24 #; Lymphocytes # 7.4 10*3/uL (1.4-4.0); Lymphocytes % 27.4 % (21.3-54.2); Mean Corpuscular HGB Conc 30.4 GM/DL (32-36); Mean Corpuscular Hemoglobin 27 PG (27-34); Mean Corpuscular Volume 87.3 FL (87-102); Mean Platelet Volume 10.5 FL (9.6-12.0); Monocytes # 1.7 10*3/uL (0.11-0.8); Monocytes % 6.2 % (1.7-12.7); Neutrophils # 17.3 10*3/uL (1.4-7.4); Neutrophils % 63.8 % (38.7-73.9); Platelet Count 503 T/CUMM (130-400); Red Blood Count 3.16 MC/CUMM (3.8-5.5); Red Cell Distribution Width 18.7 % (9.3-17.3); White Blood Count 27.1 T/CUMM (4-12)
[2017-12-28 06:58] LABS: Calcium 7.9 MG/DL (8.5-10.1); Osmolality,Calculated 289.7 MOS/KG (273-304); Potassium 3.1 MMOL/L (3.5-5.1)
[2017-12-28 07:21] LABS: Eosinophils 2 % (0-10); Hypochromasia 1+; Lymphocytes 12 % (20-55); Ovalocytes Slight; Platelet Estimate Adequate; Segmented Neutrophils 81 % (50-85); Total Cells Counted 100
[2017-12-28] MEDS: POTASSIUM CHLORIDE 20 MEQ TABLET PO PRN ×3 (08:41→17:13)
[2017-12-28] MEDS: CHLORHEXIDINE 0.12% ORAL RINSE 60 ML BOTTLE SWISH/SPIT SCH ×2 (08:43→21:02)
[2017-12-28] MEDS: INSULIN LISPRO 100 UNIT/ML SUBCUT SCH (08:46)
[2017-12-28] MEDS: MULTIVITAMIN (CENTRUM) TABLET PO SCH (10:46)
[2017-12-28] MEDS: CALCIUM (CARBONATE) 600 MG TABLET PO SCH (10:46)
[2017-12-28] MEDS: ChlordiazePOXIDE/CLIDINIUM 5-2.5 MG CAPSULE PO SCH (10:47)
[2017-12-28] MEDS: DOCUSATE SODIUM 100 MG CAPSULE PO SCH ×2 (10:47→21:00)
[2017-12-28] MEDS: FERROUS SULFATE 325 MG TABLET PO SCH ×2 (10:47→21:00)
[2017-12-28] MEDS: VANCOMYCIN INJ 750 MG in SODIUM CHLORIDE 0.9% 250 ML IV SCH (11:34)
[2017-12-28] MEDS ORDERED: SKIN HEALING OINT (AQUAPHOR) 50 GM TUBE TOP PRN (14:48)
[2017-12-28] MEDS: ENOXAPARIN 40 MG/0.4 ML SYRINGE SUBCUT SCH ×2 (14:57→17:13)
[2017-12-28] MEDS: POTASSIUM CHLORIDE 20 MEQ TABLET PO SCH (17:12)
[2017-12-28] MEDS: ZINC OXIDE PASTE 113 GM TUBE TOP SCH ×2 (17:13→21:08)
[2017-12-28] MEDS: FUROSEMIDE 40 MG TABLET PO SCH (17:13)
[2017-12-29] MEDS: CLINDAMYCIN INJ 600 MG in PREMIX 1 EACH IV SCH ×4 (02:46→21:18)
[2017-12-29 04:19] LABS: Basophils # 0.1 10*3/uL (0.0-0.2); Basophils % 0.4 % (0.0-0.8); Eosinophils # 0.7 10*3/uL (0.0-0.87); Eosinophils % 3.5 % (0.00-10.9); Hematocrit 23.3 VOL% (35.7-47.0); Hemoglobin 7.5 GM/DL (12.0-16.0); Immature Granulocytes % 1.2 %; Immature Granulocytes Absolute 0.26 #; Lymphocytes # 7.1 10*3/uL (1.4-4.0); Lymphocytes % 33.6 % (21.3-54.2); Mean Corpuscular HGB Conc 32.2 GM/DL (32-36); Mean Corpuscular Hemoglobin 27 PG (27-34); Mean Corpuscular Volume 82.3 FL (87-102); Mean Platelet Volume 10.3 FL (9.6-12.0); Monocytes # 1.2 10*3/uL (0.11-0.8); Monocytes % 5.8 % (1.7-12.7); Neutrophils # 11.7 10*3/uL (1.4-7.4); Neutrophils % 55.5 % (38.7-73.9); Platelet Count 464 T/CUMM (130-400); Red Blood Count 2.83 MC/CUMM (3.8-5.5); Red Cell Distribution Width 18.3 % (9.3-17.3); White Blood Count 21.1 T/CUMM (4-12)
[2017-12-29 04:57] LABS: Calcium 7.8 MG/DL (8.5-10.1); Osmolality,Calculated 285.8 MOS/KG (273-304); Potassium 3.7 MMOL/L (3.5-5.1)
[2017-12-29 05:22] LABS: Acanthocytes Few; Hypochromasia 1+; Microcytosis 1+; Ovalocytes Slight; Platelet Estimate Increased
[2017-12-29] MEDS: VANCOMYCIN INJ 750 MG in SODIUM CHLORIDE 0.9% 250 ML IV SCH (05:59)
[2017-12-29] MEDS: CALCIUM (CARBONATE) 600 MG TABLET PO SCH (10:23)
[2017-12-29] MEDS: MULTIVITAMIN (CENTRUM) TABLET PO SCH (10:23)
[2017-12-29] MEDS: POTASSIUM CHLORIDE 20 MEQ TABLET PO SCH ×2 (10:24→21:17)
[2017-12-29] MEDS: CHLORHEXIDINE 0.12% ORAL RINSE 60 ML BOTTLE SWISH/SPIT SCH ×2 (10:24→21:19)
[2017-12-29] MEDS: ZINC OXIDE PASTE 113 GM TUBE TOP SCH ×2 (10:24→21:18)
[2017-12-29] MEDS: FERROUS SULFATE 325 MG TABLET PO SCH ×2 (10:24→21:17)
[2017-12-29] MEDS: ChlordiazePOXIDE/CLIDINIUM 5-2.5 MG CAPSULE PO SCH (10:24)
[2017-12-29] MEDS: DOCUSATE SODIUM 100 MG CAPSULE PO SCH ×2 (10:24→21:17)
[2017-12-29] MEDS: FUROSEMIDE 40 MG TABLET PO SCH (10:24)
[2017-12-29] MEDS ORDERED: SODIUM CHLORIDE 0.9% 1,000 ML IV PRN (11:22)
[2017-12-29] MEDS: SODIUM CHLORIDE 0.9% 1,000 ML IV SCH ×2 (12:35→12:36)
[2017-12-29] MEDS ORDERED: DEXTROSE 50% 25 GM/50 ML VIAL IV PRN (15:03)
[2017-12-29] MEDS ORDERED: GLUCAGON 1 MG VIAL IM PRN (15:03)
[2017-12-29] MEDS ORDERED: BISACODYL 5 MG TABLET PO ONE (15:10)
[2017-12-29] MEDS: FUROSEMIDE 40 MG/4 ML VIAL IV SCH (16:00)
[2017-12-29] MEDS: INSULIN REGULAR 100 UNIT/ML SUBCUT SCH ×2 (17:59→20:30)
[2017-12-30] MEDS: VANCOMYCIN INJ 750 MG in SODIUM CHLORIDE 0.9% 250 ML IV SCH (01:03)
[2017-12-30] MEDS: CLINDAMYCIN INJ 600 MG in PREMIX 1 EACH IV SCH ×3 (03:03→15:43)
[2017-12-30 05:10] LABS: Basophils # 0.1 10*3/uL (0.0-0.2); Basophils % 0.4 % (0.0-0.8); Eosinophils # 0.8 10*3/uL (0.0-0.87); Eosinophils % 4.2 % (0.00-10.9); Hematocrit 29.3 VOL% (35.7-47.0); Immature Granulocytes % 1.3 %; Immature Granulocytes Absolute 0.24 #; Lymphocytes # 7.9 10*3/uL (1.4-4.0); Lymphocytes % 42.2 % (21.3-54.2); Mean Corpuscular HGB Conc 32.8 GM/DL (32-36); Mean Corpuscular Hemoglobin 27 PG (27-34); Mean Corpuscular Volume 81.8 FL (87-102); Mean Platelet Volume 10.7 FL (9.6-12.0); Monocytes % 5.3 % (1.7-12.7); Neutrophils # 8.7 10*3/uL (1.4-7.4); Neutrophils % 46.6 % (38.7-73.9); Platelet Count 468 T/CUMM (130-400); Red Cell Distribution Width 17.2 % (9.3-17.3); White Blood Count 18.7 T/CUMM (4-12)
[2017-12-30 05:30] LABS: Osmolality,Calculated 278.4 MOS/KG (273-304); Potassium 4.1 MMOL/L (3.5-5.1)
[2017-12-30 05:44] LABS: Hemoglobin 9.6 GM/DL (12.0-16.0); Red Blood Count 3.58 MC/CUMM (3.8-5.5)
[2017-12-30 06:21] LABS: Band Neutrophils 3 % (0-10); Eosinophils 4 % (0-10); Lymphocytes 43 % (20-55); Segmented Neutrophils 43 % (50-85); Total Cells Counted 100
[2017-12-30 06:22] LABS: Hypochromasia 2+; Platelet Estimate Increased; Target Cells 1+
[2017-12-30] MEDS: INSULIN REGULAR 100 UNIT/ML SUBCUT SCH ×4 (09:36→22:07)
[2017-12-30] MEDS: MULTIVITAMIN (CENTRUM) TABLET PO SCH (09:37)
[2017-12-30] MEDS: PANTOPRAZOLE 40 MG TABLET PO SCH (09:37)
[2017-12-30] MEDS: CALCIUM (CARBONATE) 600 MG TABLET PO SCH (09:37)
[2017-12-30] MEDS: DOCUSATE SODIUM 100 MG CAPSULE PO SCH (09:38)
[2017-12-30] MEDS: POTASSIUM CHLORIDE 20 MEQ TABLET PO SCH ×2 (09:38→21:59)
[2017-12-30] MEDS: ChlordiazePOXIDE/CLIDINIUM 5-2.5 MG CAPSULE PO SCH (09:38)
[2017-12-30] MEDS: FERROUS SULFATE 325 MG TABLET PO SCH ×2 (09:38→21:59)
[2017-12-30] MEDS: ZINC OXIDE PASTE 113 GM TUBE TOP SCH ×2 (09:39→21:59)
[2017-12-30] MEDS: CHLORHEXIDINE 0.12% ORAL RINSE 60 ML BOTTLE SWISH/SPIT SCH ×2 (09:39→21:58)
[2017-12-30] MEDS: FUROSEMIDE 40 MG/4 ML VIAL IV SCH ×2 (09:39→15:49)
[2017-12-30] MEDS ORDERED: hydrOXYzine HCL 25 MG TABLET PO PRN (11:40)
[2017-12-30] MEDS ORDERED: VANCOMYCIN INJ 750 MG in SODIUM CHLORIDE 0.9% 250 ML IV SCH (13:30)
[2017-12-30] MEDS: FIDAXOMICIN 200 MG TABLET PO SCH (21:59)
[2017-12-31 05:51] LABS: Basophils # 0.1 10*3/uL (0.0-0.2); Basophils % 0.3 % (0.0-0.8); Eosinophils # 0.6 10*3/uL (0.0-0.87); Eosinophils % 3.5 % (0.00-10.9); Hematocrit 29.8 VOL% (35.7-47.0); Hemoglobin 9.6 GM/DL (12.0-16.0); Immature Granulocytes % 1.3 %; Immature Granulocytes Absolute 0.24 #; Lymphocytes # 7.7 10*3/uL (1.4-4.0); Lymphocytes % 43.1 % (21.3-54.2); Mean Corpuscular HGB Conc 32.2 GM/DL (32-36); Mean Corpuscular Hemoglobin 27 PG (27-34); Mean Corpuscular Volume 82.5 FL (87-102); Mean Platelet Volume 10.7 FL (9.6-12.0); Monocytes # 1.3 10*3/uL (0.11-0.8); Neutrophils % 44.8 % (38.7-73.9); Platelet Count 467 T/CUMM (130-400); Red Blood Count 3.61 MC/CUMM (3.8-5.5); Red Cell Distribution Width 17.2 % (9.3-17.3); White Blood Count 17.9 T/CUMM (4-12)
[2017-12-31 06:14] LABS: Calcium 8.2 MG/DL (8.5-10.1); Osmolality,Calculated 274.5 MOS/KG (273-304); Potassium 3.6 MMOL/L (3.5-5.1)
[2017-12-31 06:25] LABS: Eosinophils 1 % (0-10); Hypochromasia 1+; Lymphocytes 38 % (20-55); Platelet Estimate Adequate; Segmented Neutrophils 56 % (50-85); Total Cells Counted 100
[2017-12-31 06:26] LABS: Atypical Lymphocytes Few; Microcytosis 1+; Ovalocytes Slight
[2017-12-31] MEDS: FIDAXOMICIN 200 MG TABLET PO SCH (09:21)
[2017-12-31] MEDS: FERROUS SULFATE 325 MG TABLET PO SCH ×2 (09:21→21:26)
[2017-12-31] MEDS: PANTOPRAZOLE 40 MG TABLET PO SCH (09:22)
[2017-12-31] MEDS: CALCIUM (CARBONATE) 600 MG TABLET PO SCH (09:22)
[2017-12-31] MEDS: ChlordiazePOXIDE/CLIDINIUM 5-2.5 MG CAPSULE PO SCH (09:22)
[2017-12-31] MEDS: MULTIVITAMIN (CENTRUM) TABLET PO SCH (09:23)
[2017-12-31] MEDS: POTASSIUM CHLORIDE 20 MEQ TABLET PO SCH ×2 (09:23→21:26)
[2017-12-31] MEDS: ZINC OXIDE PASTE 113 GM TUBE TOP SCH ×2 (09:29→21:27)
[2017-12-31] MEDS: INSULIN REGULAR 100 UNIT/ML SUBCUT SCH ×4 (09:29→21:26)
[2017-12-31] MEDS: CHLORHEXIDINE 0.12% ORAL RINSE 60 ML BOTTLE SWISH/SPIT SCH ×2 (09:30→21:27)
[2017-12-31] MEDS: LACTOBACILLUS ACIDOPHILUS/BULGARICUS CAPLET PO SCH (21:26)
[2018-01-01 06:09] LABS: Basophils # 0.1 10*3/uL (0.0-0.2); Basophils % 0.5 % (0.0-0.8); Eosinophils # 0.5 10*3/uL (0.0-0.87); Eosinophils % 2.9 % (0.00-10.9); Hematocrit 29.8 VOL% (35.7-47.0); Immature Granulocytes % 1.3 %; Immature Granulocytes Absolute 0.23 #; Lymphocytes # 5.7 10*3/uL (1.4-4.0); Lymphocytes % 33.3 % (21.3-54.2); Mean Corpuscular HGB Conc 33.6 GM/DL (32-36); Mean Corpuscular Hemoglobin 27 PG (27-34); Mean Corpuscular Volume 81.2 FL (87-102); Mean Platelet Volume 10.2 FL (9.6-12.0); Monocytes # 1.3 10*3/uL (0.11-0.8); Monocytes % 7.7 % (1.7-12.7); Neutrophils # 9.3 10*3/uL (1.4-7.4); Neutrophils % 54.3 % (38.7-73.9); Platelet Count 470 T/CUMM (130-400); Red Blood Count 3.67 MC/CUMM (3.8-5.5); Red Cell Distribution Width 17.6 % (9.3-17.3); White Blood Count 17.2 T/CUMM (4-12)
[2018-01-01] MEDS: INSULIN REGULAR 100 UNIT/ML SUBCUT SCH ×2 (10:07→12:17)
[2018-01-01] MEDS: LACTOBACILLUS ACIDOPHILUS/BULGARICUS CAPLET PO SCH (10:11)
[2018-01-01] MEDS: ZINC OXIDE PASTE 113 GM TUBE TOP SCH (10:12)
[2018-01-01] MEDS: MULTIVITAMIN (CENTRUM) TABLET PO SCH (10:12)
[2018-01-01] MEDS: PANTOPRAZOLE 40 MG TABLET PO SCH (10:12)
[2018-01-01] MEDS: POTASSIUM CHLORIDE 20 MEQ TABLET PO SCH (10:12)
[2018-01-01] MEDS: ChlordiazePOXIDE/CLIDINIUM 5-2.5 MG CAPSULE PO SCH (10:12)
[2018-01-01] MEDS: FERROUS SULFATE 325 MG TABLET PO SCH (10:12)
[2018-01-01] MEDS: CALCIUM (CARBONATE) 600 MG TABLET PO SCH (10:12)
[2018-01-01] MEDS: CHLORHEXIDINE 0.12% ORAL RINSE 60 ML BOTTLE SWISH/SPIT SCH (10:19)
[2018-01-01 12:57] VITALS: BP 117/58
== END 2018-01-01 12:45 | DRG 872 ==
LOC: EDUNIT# → EDBD → N.ED 13:03 → SUATTDRO 15:59 → N.EDINP 15:59 → N.2W 16:45 → N.5E 18:14
PROVIDERS: ADMIT Internal Medicine; ATTEND Internal Medicine